=== PATIENT | female | born 1975 | race Caucasian/White ===

== ENCOUNTER 2020-09-06 07:52 | Day surgery (SDC) | payer BC ==
[2020-08-30 15:54] LABS: BASOPHILS # (AUTO) 0.1 X10'3 (0-0.2); BASOPHILS % (AUTO) 0.6 % (0-1); EOSINOPHILS # (AUTO) 0.2 X10'3 (0-0.9); EOSINOPHILS % (AUTO) 1.8 % (0-6); LYMPHOCYTES # (AUTO) 3.5 X10'3 (1.1-4.8); MEAN CORPUSCULAR HEMOGLOBIN 24.2 PG (27.0-31.0); MEAN CORPUSCULAR HGB CONC 32.3 g/dL (33.0-36.5); MEAN CORPUSCULAR VOLUME 74.8 FL (78-98); MEAN PLATELET VOLUME 7.9 FL (7.4-10.4); MONOCYTES # (AUTO) 0.6 X10'3 (0-0.9); MONOCYTES % (AUTO) 5.9 % (2-12); NEUTROPHILS # (AUTO) 6.3 X10'3 (1.8-7.7); NEUTROPHILS % (AUTO) 58.7 % (42-75); PRE OP HEMATOCRIT 39.4 % (35.0-45.0); PRE OP HEMOGLOBIN 12.7 g/dL (12.0-16.0); PRE OP PLATELET COUNT 359 X10'3 (140-440); RED BLOOD COUNT 5.27 X10'6 (4.20-5.60); RED CELL DISTRIBUTION WIDTH 17.1 % (11.5-14.5)
[2020-08-30 16:18] LABS: ALBUMIN 3.1 G/DL (3.4-5.0); ALBUMIN/GLOBULIN RATIO 0.8 (1.1-1.5); ALKALINE PHOSPHATASE 90 IU/L (46-116); BLOOD UREA NITROGEN 7 MG/DL (7-18); BUN/CREATININE RATIO 8.8 (6.6-38.0); CALCIUM 8.6 MG/DL (8.5-10.1); CHLORIDE 104 MMOL/L (99-107); PRE OP ALT 25 U/L (30-65); PRE OP ANION GAP 9 (8-16); PRE OP AST 21 U/L (10-37); PRE OP BILIRUB, TOTAL 0.2 MG/DL (0.0-1.0); PRE OP GLUCOSE 106 MG/DL (70-104); PRE OP POTASSIUM 3.6 MMOL/L (3.4-5.1); PRE OP SODIUM 140 MMOL/L (135-145); TOTAL CARBON DIOXIDE 26.8 MMOL/L (24-32); TOTAL PROTEIN 7.1 G/DL (6.4-8.2); eGFR 78 ML/MIN
[~2020-09-06] VITALS: Ht 165.1 cm; Wt 126.0 kg
[~2020-09-06 07:52] MED LIST: BIOT5000 PO; BUPIVAcaine/PF 2.5mg/ml (0.25%) 10ml vial ONE; CHOL100046 PO; DULO60CA65 PO; IBUPROFEN PO; LIDOcaine 0.5% (5mg/ml) 50ml vial ONE; LORA10CA PO; LOSA100T57 PO; OMEP-50 PO; [UNRECOGNIZED DRUG - OTHER] PO; ceFAZolin inj. 3,000 MG in normal saline 100ml IV soln 100 ML IV ONE; famotidine 20mg tablet PO ONE; ringers solution, lacted 1,000 ML IV SCH
[2020-09-06 09:21] VITALS: BP 137/86
[2020-09-06] MEDS ORDERED: morphine 2 MG/ML inj. syringe IV PRN (09:35)
[2020-09-06] MEDS ORDERED: hydrALAZINE 20mg/ml inj. IV PRN (09:35)
[2020-09-06] MEDS ORDERED: morphine 4 MG/ML inj SYRINge IV PRN (09:35)
[2020-09-06] MEDS ORDERED: labetalol 20mg/4ml (5mg/ml) syringe IV PRN (09:35)
[2020-09-06] MEDS ORDERED: ondansetron/PF 4mg/2ml inj IV PRN (09:35)
[2020-09-06] MEDS ORDERED: fentaNYL/PF 50MCG/1 ML 2ML syringe IV PRN ×2 (09:35)
[2020-09-06] MEDS ORDERED: ringers solution, lacted 1,000 ML IV SCH (09:35)
[2020-09-06] MEDS ORDERED: MIDAZolam 1 MG/ML 5ML VIAL ONE (09:45)
[2020-09-06] MEDS ORDERED: fentaNYL/PF 50MCG/1 ML 2ML syringe ONE (09:45)
[2020-09-06 10:42] VITALS: BP 144/82
--- NOTE | 2020-09-06 10:42 | NUR ---
Received from OR via , accompanied by Anesthesiologist DR DONNELLY and report given by Anesthesiolgist. AWAKENS TO VOICE. VITALS STABLE. DRESSING DI. AJ PAIN. FINGERS WARM AND PINK.
[2020-09-06 10:52] VITALS: BP 137/79
[2020-09-06 11:02] VITALS: BP 133/76
[2020-09-06 11:12] VITALS: BP 144/71
[2020-09-06 11:22] VITALS: BP 136/74
--- NOTE | 2020-09-06 11:32 | NUR ---
AWAKE AND ORIENTED. VITALS STABLE. DRESSING DI. AJ PAIN. HOME WITH HER MOM AT THIS TIME.
== END 2020-09-06 11:32 | disposition home or self-care (01) ==
LOC: PAS 07:52
PROVIDERS: ATTEND Orthopaedic Surgery Hand Surgery
DX: G56.01 Carpal tunnel syndrome, right upper limb (principal); G47.30 Sleep apnea, unspecified; I10 Essential (primary) hypertension; E66.9 Obesity, unspecified; Z68.42 Body mass index [BMI] 45.0-49.9, adult; Z20.822 Contact with and (suspected) exposure to COVID-19; Z79.899 Other long term (current) drug therapy; Z88.2 Allergy status to sulfonamides; Z98.890 Other specified postprocedural states; Z90.710 Acquired absence of both cervix and uterus
CPT/HCPCS: 29848; 36415; 80053; 82948; 85025; 93005; J0690; J2001; J2250; J3010; J3490; U0003; U0005; A4215; A7000; J7120

== ENCOUNTER 2023-07-03 11:02 | Emergency (ER) | payer BC ==
[~2023-07-03] VITALS: Ht 165.1 cm; Wt 126.1 kg
[~2023-07-03 11:02] MED LIST changes: -BUPIVAcaine/PF 2.5mg/ml (0.25%) 10ml vial ONE; -LIDOcaine 0.5% (5mg/ml) 50ml vial ONE; -LOSA100T57 PO; +LOSA100T58 PO; -OMEP-50 PO; +OMEP20CA16 PO; -ceFAZolin inj. 3,000 MG in normal saline 100ml IV soln 100 ML IV ONE; -famotidine 20mg tablet PO ONE; -ringers solution, lacted 1,000 ML IV SCH
[2023-07-03] MEDS: dexamethasone sod phosphate 10mg/ml inj IV STA (11:53)
[2023-07-03] MEDS: diphenhydrAMINE 50 mg/ml inj IV ONE (11:53)
[2023-07-03] MEDS: normal saline 1000ML IV soln IVB ONE (11:53)
[2023-07-03] MEDS: tranexamic acid 100mg/ml inj. IV ONE (11:54)
[2023-07-03 12:43] VITALS: TEMP 98.2
[2023-07-03] MEDS ORDERED: ATOR20TA66 PO (12:45)
[2023-07-03] MEDS ORDERED: DULO30CA52 PO (12:45)
[2023-07-03] MEDS ORDERED: DICL50TA14 PO (12:45)
[2023-07-03] MEDS ORDERED: DULO-31 PO (12:46)
[2023-07-03 13:39] VITALS: BP 139/86; PULSE 80; RESP 17; O2SAT 96
== END 2023-07-03 13:41 | disposition home or self-care (01) ==
LOC: ER 11:02
DX: T78.3XXA Angioneurotic edema, initial encounter (principal); Z88.2 Allergy status to sulfonamides; Z88.8 Allergy status to other drugs, medicaments and biological substances; Z79.899 Other long term (current) drug therapy; X58.XXXA Exposure to other specified factors, initial encounter
CPT/HCPCS: 96361; 96374; 96375; 99284; J1100; J1200; J3490; J7030